=== PATIENT | female | born 1990 | race American Indian/Alaskan Native ===

== ENCOUNTER 2017-04-28 22:49 | Emergency (ER) | payer MEDICAID | END 2017-04-28 23:05 | disposition left against medical advice (07) | LOC: ED 22:49 | DX: M54.9 Dorsalgia, unspecified (principal); Z91.018 Allergy to other foods; V89.2XXA Person injured in unspecified motor-vehicle accident, traffic, initial encounter; Y93.89 Activity, other specified; Y99.9 Unspecified external cause status; Y92.410 Unspecified street and highway as the place of occurrence of the external cause; Z53.21 Procedure and treatment not carried out due to patient leaving prior to being seen by health care provider ==